=== PATIENT | male | born 1955 | race Caucasian/White ===

== ENCOUNTER 2019-04-05 18:32 | Emergency (ER) | payer MEDICARE ==
[~2019-04-05] VITALS: Ht 172.7 cm; Wt 90.7 kg
[2019-04-05 19:10] VITALS: BP 144/71
[2019-04-05] MEDS ORDERED: BENZ100C PO (19:57)
[2019-04-05] MEDS ORDERED: AZIT500T PO (19:57)
--- NOTE | 2019-04-05 19:57 | PHYS DOC ---
Past Medical History Past Medical History: COPD, Diabetes-Type II, High Cholesterol, Hypertension (RONAN ALEXANDER APRN) Past Surgical History: No Surgical History (RONAN ALEXANDER APRN) Additional Information: quit 03/30/19 Alcohol Use: Rarely Drug Use: None (RONAN ALEXANDER APRN) Adult General Chief Complaint Chief Complaint: COUGH HPI HPI Patient is 63-year-old male who presents with a cough for a week and a half. Patient has had congestion and he knows and states that he is having trouble getting the mucus up. Describes the mucus is green. Quit smoking a week and a half ago. Has been trying Mucinex [id number] states it is not working. (RONAN ALEXANDER APRN) Review of Systems Review of Systems Constitutional: Denies fever or chills [] Eyes: Denies change in visual acuity, redness, or eye pain [] HENT: Reports nasal congestion and sore throat [] Respiratory: Reports cough and shortness of breath [] Cardiovascular: No additional information not addressed in HPI [] GI: Denies abdominal pain, nausea, vomiting, bloody stools or diarrhea [] : Denies dysuria or hematuria [] Musculoskeletal: Denies back pain or joint pain [] Integument: Denies rash or skin lesions [] Neurologic: Denies headache, focal weakness or sensory changes [] Endocrine: Denies polyuria or polydipsia [] Complete systems were reviewed and found to be within normal limits, except as documented in this note. (RONAN ALEXANDER APRN) Current Medications Current Medications Current Medications Medications (Trade) Dose Ordered Sig/Suzanne Start Time Stop Time Status Last Admin Dose Admin Albuterol/ Ipratropium (Duoneb) 3 ml 1X ONCE 04/05/19 20:00 04/05/19 20:01 DC 04/05/19 20:37 3 ML Ketorolac Tromethamine (Toradol 30mg Vial) 30 mg 1X ONCE 04/05/19 20:00 04/05/19 20:01 DC 04/05/19 20:33 30 MG (RONAN GARCIA DO) Allergies Allergies Allergies Coded Allergies Type Severity Reaction Last Updated Verified No Known Drug Allergies 04/05/19 No (RONAN GARCIA DO) Physical Exam Physical Exam Constitutional: Well developed, well nourished, no acute distress, non-toxic appearance. [] HENT: Normocephalic, atraumatic, bilateral external ears normal, oropharynx moist, no oral exudates, nose normal. [] Eyes: PERRLA, EOMI, conjunctiva normal, no discharge. [] Neck: Normal range of motion, no tenderness, supple, no stridor. [] Cardiovascular:Heart rate regular rhythm, no murmur [] Lungs & Thorax: Bilateral breath sounds clear to auscultation [] Abdomen: Soft, no tenderness, no masses, no pulsatile masses. [] Skin: Warm, dry, no erythema, no rash. [] Back: No tenderness, no CVA tenderness. [] Extremities: No tenderness, no cyanosis, no clubbing, ROM intact, no edema. [] Neurologic: Alert and oriented X 3, normal motor function, normal sensory function, no focal deficits noted. [] Psychologic: Affect normal, judgement normal, mood normal. [] (RONAN ALEXANDER APRN) Current Patient Data Vital Signs Vital Signs Date Time Temp Pulse Resp B/P (MAP) Pulse Ox O2 Delivery O2 Flow Rate FiO2 04/05/19 20:37 99 Room Air 04/05/19 19:10 98.3 78 16 144/71 (95) 98.3 (RONAN GARCIA DO) EKG EKG [] (RONAN ALEXANDER APRN) Radiology/Procedures Radiology/Procedures []PATIENT: DEEPAK BURNS RACCOUNT: [id number]#: [id number] : 1955 LOCATION: ER AGE: 63 SEX: M EXAM STATUS: REG ER ORD. PHYSICIAN: RONAN ALEXANDER APRN REASON: cough PROCEDURE: CHEST PA & LATERAL EXAM: Chest, 2 views. HISTORY: Cough. COMPARISON: None. FINDINGS: 2 views the chest are obtained. There is no infiltrate, pleural effusion or pneumothorax. There is linear right basilar opacity likely due to atelectasis. There are few calcified granulomas. The heart is normal in size. IMPRESSION: Suspected linear right basilar atelectasis. Electronically signed by: Melanie Thakkar MD (04/05/2019 8:26 PM) [facility] (RONAN ALEXANDER APRN) Course & Med Decision Making Course & Med Decision Making Pertinent Labs and Imaging studies reviewed. (See chart for details) Discussed signs and symptoms with patient. Will order chest x-ray and duoneb as well as Toradol for pain management. Talked with patient about negative imaging. Instructed him to take zyrtec, mucinex, tessalon perles, and azithromycin. (RONAN ALEXANDER APRN) Dragon Disclaimer Dragon Disclaimer This electronic medical record was generated, in whole or in part, using a voice recognition dictation system. (RONAN ALEXANDER APRN) Departure Departure Impression: Primary Impression: Bronchitis Disposition: HOME, SELF-CARE Condition: STABLE Referrals: TERE WORKMAN MD (PCP) Patient Instructions: Acute Bronchitis, [id number] Additional Instructions: Please take Zyrtec once a day over the counter, continue to take Mucinex. Come back to ER as needed. Scripts Azithromycin (ZITHROMAX) 500 Mg Tablet 1 TAB PO DAILY for 3 Days, #3 TAB Prov: RONAN ALEXANDER APRN 04/05/19 Benzonatate (TESSALON PERLE) 100 Mg Capsule 1 CAP PO TID, #21 CAP Prov: RONAN ALEXANDER APRN 04/05/19 Attending Signature Attending Signature I have reviewed the PA/[employer]NAGER's note and plan of care. I was available for consultation as needed during the patient's visit in the emergency department. I agree with the clinical impression, plan, and disposition. (RONAN GARCIA DO) RONAN ALEXANDER APRN April 05, 2019 19:57 RONAN GARCIA DO April 06, 2019 05:28
[2019-04-05] MEDS ORDERED: KETOROLAC 30 MG/ML VIAL. IM ONE (20:00)
[2019-04-05] MEDS ORDERED: IPRATRPIUM/ALBUTEROL 0.5/2.5MG 3 ML NEBU. NEB ONE (20:00)
--- NOTE | 2019-04-05 20:29 | RAD ---
EXAM: Chest, 2 views. HISTORY: Cough. COMPARISON: None. FINDINGS: 2 views the chest are obtained. There is no infiltrate, pleural effusion or pneumothorax. There is linear right basilar opacity likely due to atelectasis. There are few calcified granulomas. The heart is normal in size. IMPRESSION: Suspected linear right basilar atelectasis. Electronically signed by: Melanie Thakkar MD (04/05/2019 8:26 PM) [facility]
== END 2019-04-05 20:51 | disposition home or self-care (01) ==
LOC: ER 18:32
DX: J40 Bronchitis, not specified as acute or chronic (principal); Z87.891 Personal history of nicotine dependence; J44.9 Chronic obstructive pulmonary disease, unspecified; E11.9 Type 2 diabetes mellitus without complications; E78.00 Pure hypercholesterolemia, unspecified; I10 Essential (primary) hypertension
CPT/HCPCS: 71046; 94640; 96372; 99284; J1885; J7620